=== PATIENT | male | born 1960 | race Caucasian/White ===

== ENCOUNTER 2017-09-08 17:54 | Emergency (ER) | payer MEDICAID ==
[~2017-09-08] VITALS: Ht 180.3 cm; Wt 79.4 kg
[2017-09-08 19:37] LABS: Basophils # (auto) 0 uL; Basophils % (auto) 0.6 % (0.0-2.0); Eosinophils # (auto) 0.1 uL; Hematocrit 34.4 % (41.0-53.0); Hemoglobin 11.1 g/dL (13.5-17.5); Lymphocytes # (auto) 3.4 uL; Mean Corpuscular Hemoglobin 28.4 pg (28.0-32.0); Mean Corpuscular Hgb Conc. 32.4 g/dL (32.0-36.0); Mean Corpuscular Volume 87.6 fL (80.0-100.0); Monocytes # (auto) 0.5 uL; Neutrophils # (auto) 3.4 uL; Neutrophils % (auto) 45.4 % (37.0-80.0); Nucleated Red Blood Cells % 0.3 %; Platelet Count (auto) 168 10^3/uL (140-450); Red Blood Cells 3.93 10^6/uL (4.5-5.90); White Blood Cell 7.4 10^3/uL (4.4-10.8)
[2017-09-08 19:57] LABS: Albumin 2.4 g/dL (3.4-5.0); BUN/Creatinine Ratio 18.9; Bilirubin, Total 0.3 mg/dL (0.2-1.0); Calcium 7.8 mg/dL (8.5-10.1); Potassium 4.2 mmol/L (3.5-5.1); Total Protein 8.6 g/dL (6.4-8.2)
[2017-09-09] MEDS ORDERED: LIDOCAINE 1% HCL (LOCAL ANESTH.) INJ 20ML MDV ONE (02:40)
[2017-09-09] MEDS ORDERED: CLINDAMYCIN HCL 150 MG CAP PO ONE (02:45)
[2017-09-09] MEDS ORDERED: cefTRIAXone SOD 1,000 MG VL IM ONE (02:45)
[2017-09-09 03:04] LABS: Urine Bacteria FEW /hpf (None Seen); Urine Blood 1+ /uL (Negative); Urine Mucus FEW (None Seen); Urine Specific Gravity 1.016 (1.001-1.035); Urine WBC 14 /hpf (0 - 3)
[2017-09-09 03:58] VITALS: BP 182/94
== END 2017-09-09 04:34 | disposition home or self-care (01) ==
LOC: ER 17:54
DX: L03.114 Cellulitis of left upper limb (principal)
CPT/HCPCS: 36415; 80053; 81001; 85025; 87077; 87186; 87205; 96372; 99284; J0696; J2001; J7030

== ENCOUNTER 2017-11-27 08:52 | Emergency (ER) | payer MEDICAID ==
[~2017-11-27] VITALS: Ht 180.3 cm; Wt 113.4 kg
[2017-11-27 09:29] LABS: Basophils # (auto) 0.1 uL; Basophils % (auto) 1.1 % (0.0-2.0); Eosinophils # (auto) 0.1 uL; Eosinophils % (auto) 1.9 % (0.0-7.0); Hematocrit 36.2 % (41.0-53.0); Hemoglobin 11.7 g/dL (13.5-17.5); Lymphocytes # (auto) 1.7 uL; Mean Corpuscular Hemoglobin 28.4 pg (28.0-32.0); Mean Corpuscular Hgb Conc. 32.5 g/dL (32.0-36.0); Mean Corpuscular Volume 87.5 fL (80.0-100.0); Monocytes # (auto) 0.5 uL; Monocytes % (auto) 8.2 % (0.0-12.0); Neutrophils # (auto) 3.6 uL; Neutrophils % (auto) 59.8 % (37.0-80.0); Nucleated Red Blood Cells % 0.1 %; Platelet Count (auto) 205 10^3/uL (140-450); Red Blood Cells 4.14 10^6/uL (4.5-5.90); Red Cell Distribution Width 15.9 % (11.8-14.3)
[2017-11-27 10:03] LABS: Albumin 2.6 g/dL (3.4-5.0); BUN/Creatinine Ratio 19.5; Bilirubin, Total 0.3 mg/dL (0.2-1.0); Calcium 7.7 mg/dL (8.5-10.1); Potassium 4.2 mmol/L (3.5-5.1); Total Protein 8.8 g/dL (6.4-8.2)
[2017-11-27 13:05] LABS: Urine Bacteria MOD /hpf (None Seen); Urine Blood TRACE /uL (Negative); Urine Mucus FEW (None Seen); Urine Specific Gravity 1.022 (1.001-1.035); Urine WBC 70 /hpf (0 - 3)
[2017-11-27 13:15] VITALS: BP 113/90
== END 2017-11-27 13:27 | disposition home or self-care (01) ==
LOC: ER 08:52
DX: L03.116 Cellulitis of left lower limb (principal); L03.115 Cellulitis of right lower limb; N39.0 Urinary tract infection, site not specified; E11.9 Type 2 diabetes mellitus without complications; I10 Essential (primary) hypertension; F17.210 Nicotine dependence, cigarettes, uncomplicated
CPT/HCPCS: 36415; 80053; 81001; 85025; 93970; 94761

== ENCOUNTER 2018-01-02 12:50 | Inpatient (IN) | payer MEDICAID, OTHER ==
[~2018-01-02] VITALS: Ht 180.3 cm; Wt 129.8 kg
[2018-01-02 13:29] LABS: Basophils # (auto) 0 uL; Basophils % (auto) 0.4 % (0.0-2.0); Eosinophils # (auto) 0 uL; Eosinophils % (auto) 0.3 % (0.0-7.0); Hematocrit 36.4 % (41.0-53.0); Hemoglobin 11.8 g/dL (13.5-17.5); Lymphocytes # (auto) 1.2 uL; Lymphocytes % (auto) 11.5 % (10.0-50.0); Mean Corpuscular Hemoglobin 27.9 pg (28.0-32.0); Mean Corpuscular Hgb Conc. 32.5 g/dL (32.0-36.0); Mean Corpuscular Volume 85.8 fL (80.0-100.0); Monocytes # (auto) 0.8 uL; Monocytes % (auto) 7.7 % (0.0-12.0); Neutrophils # (auto) 8.3 uL; Neutrophils % (auto) 80.1 % (37.0-80.0); Platelet Count (auto) 219 10^3/uL (140-450); Red Blood Cells 4.24 10^6/uL (4.5-5.90); Red Cell Distribution Width 15.4 % (11.8-14.3); White Blood Cell 10.3 10^3/uL (4.4-10.8)
[2018-01-02 13:49] LABS: Alanine Aminotransferase 70 U/L (16-61); Albumin 2.2 g/dL (3.4-5.0); Alkaline Phosphatase 173 U/L (45-117); Anion Gap 9 (5-15); Aspartate Aminotransferase 56 U/L (15-37); BUN/Creatinine Ratio 16.4; Bilirubin, Total 0.7 mg/dL (0.2-1.0); Blood Urea Nitrogen 23 mg/dL (7-18); Calcium 7.7 mg/dL (8.5-10.1); Carbon Dioxide 21 mmol/L (21-32); Chloride 98 mmol/L (98-107); GFR African American 67 mL/min; GFR Non-African American 55 mL/min; Glucose 394 mg/dL (74-106); Potassium 4.4 mmol/L (3.5-5.1); Sodium 128 mmol/L (136-145); Total Protein 8.7 g/dL (6.4-8.2)
[2018-01-02] MEDS ORDERED: PIPERACILLIN-TAZOB 3.375GM 100 ML IV ONE (18:30)
[2018-01-02] MEDS ORDERED: VANCOMYCIN PER PHARMACY 0 MG IV SCH (18:30)
[2018-01-02] MEDS ORDERED: DEXTROSE (50%) 50ML SYRG IV PRN (18:45)
[2018-01-02] MEDS ORDERED: DOCUSATE SOD 100 MG CAP PO PRN (19:00)
[2018-01-02] MEDS ORDERED: MORPHINE SULFATE 4 MG/ML SYR/VIAL IV PRN (19:00)
[2018-01-02] MEDS ORDERED: NITROGLYCERIN 0.4 MG SL TAB SL PRN (19:00)
[2018-01-02] MEDS ORDERED: ACETAMINOPHEN 325 MG TAB PO PRN (19:00)
[2018-01-02] MEDS: SODIUM CHLORIDE 0.9% 1,000 ML IV SCH (19:16)
[2018-01-02] MEDS: ACCU-CHEK COMFORT CURVE STRIP VI SCH (23:30)
[2018-01-03] MEDS: PIPERACILLIN-TAZOB 3.375GM 100 ML IV SCH ×5 (03:38→23:34)
[2018-01-03] MEDS: MORPHINE SULFATE 4 MG/ML SYR/VIAL IV PRN ×4 (03:53→20:04)
[2018-01-03] MEDS: ONDANSETRON HCL 4 MG/2 ML VIAL IV PRN ×3 (03:54→13:38)
[2018-01-03] MEDS: Boost Glucose Control 8 Ounces PO SCH ×5 (06:00→21:57)
[2018-01-03] MEDS: ACCU-CHEK COMFORT CURVE STRIP VI SCH ×4 (07:42→22:02)
[2018-01-03] MEDS: VANCOMYCIN 1GM/250ML 250 ML IV SCH ×3 (09:20→20:04)
[2018-01-03] MEDS: ZINC SULFATE 220 MG CAP PO SCH (10:50)
[2018-01-03] MEDS: FAMOTIDINE 20 MG TAB PO SCH ×3 (10:51→21:56)
[2018-01-03] MEDS: ASCORBIC ACID 500 MG TAB PO SCH ×3 (10:51→21:56)
[2018-01-03] MEDS: MULTIPLE VITAMIN TAB PO SCH (10:51)
[2018-01-03] MEDS: InsuLIN REG 1unit/0.01ml Soln (100units/ml) SC SCH ×5 (12:38→22:09)
[2018-01-03] MEDS: SODIUM CHLORIDE 0.9% 1,000 ML IV SCH (13:55)
[2018-01-03 14:07] LABS: Basophils # (auto) 0.1 uL; Basophils % (auto) 0.6 % (0.0-2.0); Eosinophils # (auto) 0.1 uL; Eosinophils % (auto) 0.6 % (0.0-7.0); Hematocrit 37.8 % (41.0-53.0); Hemoglobin 12.1 g/dL (13.5-17.5); Lymphocytes # (auto) 1.4 uL; Lymphocytes % (auto) 12.7 % (10.0-50.0); Mean Corpuscular Hemoglobin 27.4 pg (28.0-32.0); Mean Corpuscular Hgb Conc. 31.9 g/dL (32.0-36.0); Mean Corpuscular Volume 85.9 fL (80.0-100.0); Monocytes # (auto) 0.6 uL; Monocytes % (auto) 5.6 % (0.0-12.0); Neutrophils # (auto) 8.5 uL; Neutrophils % (auto) 80.5 % (37.0-80.0); Nucleated Red Blood Cells % 0.1 %; Platelet Count (auto) 188 10^3/uL (140-450); Red Cell Distribution Width 15.2 % (11.8-14.3); White Blood Cell 10.6 10^3/uL (4.4-10.8)
[2018-01-03 14:20] LABS: Alanine Aminotransferase 51 U/L (16-61); Alkaline Phosphatase 150 U/L (45-117); Anion Gap 9 (5-15); Aspartate Aminotransferase 40 U/L (15-37); BUN/Creatinine Ratio 14.2; Bilirubin, Total 0.6 mg/dL (0.2-1.0); Blood Urea Nitrogen 17 mg/dL (7-18); Carbon Dioxide 22 mmol/L (21-32); Chloride 102 mmol/L (98-107); GFR African American 80 mL/min; GFR Non-African American 66 mL/min; Glucose 270 mg/dL (74-106); Sodium 133 mmol/L (136-145); Total Protein 8.6 g/dL (6.4-8.2)
[2018-01-03 16:30] VITALS: BP 167/96
[2018-01-03 17:00] VITALS: BP 167/96
[2018-01-03] MEDS: HYDROcodone-ACET 5/325MG TAB PO PRN ×2 (17:51→22:09)
[2018-01-03 20:00] VITALS: BP 124/102
[2018-01-03 22:04] VITALS: BP 124/102
[2018-01-04 01:24] LABS: Urine Bacteria NONE SEEN /hpf (None Seen); Urine Blood 2+ /uL (Negative); Urine Specific Gravity 1.013 (1.001-1.035); Urine WBC 5 /hpf (0 - 3)
[2018-01-04 01:33] LABS: Alcohol, Urine < 3.0 mg/dL (0-5); Amphetamine Screen, Urine NEGATIVE (NEGATIVE); Barbiturate Scree,Urine NEGATIVE (NEGATIVE); Benzodiazephine Screen, Urine NEGATIVE (NEGATIVE); Cannabinoid Screen, Urine NEGATIVE (NEGATIVE); Cocaine Screen, Urine NEGATIVE (NEGATIVE); Opiate Scree,Urine POSITIVE (NEGATIVE); Phencyclidine Screen, Urine NEGATIVE (NEGATIVE)
[2018-01-04] MEDS: SODIUM CHLORIDE 0.9% 1,000 ML IV SCH ×2 (03:41→20:17)
[2018-01-04] MEDS: HYDROcodone-ACET 5/325MG TAB PO PRN (04:56)
[2018-01-04] MEDS: Boost Glucose Control 8 Ounces PO SCH ×4 (06:00→21:18)
[2018-01-04 06:20] LABS: Basophils # (auto) 0 uL; Basophils % (auto) 0.4 % (0.0-2.0); Eosinophils # (auto) 0.1 uL; Eosinophils % (auto) 0.6 % (0.0-7.0); Hematocrit 35.6 % (41.0-53.0); Hemoglobin 11.7 g/dL (13.5-17.5); Lymphocytes # (auto) 1.5 uL; Lymphocytes % (auto) 15.7 % (10.0-50.0); Mean Corpuscular Hemoglobin 28.2 pg (28.0-32.0); Mean Corpuscular Hgb Conc. 32.9 g/dL (32.0-36.0); Mean Corpuscular Volume 85.8 fL (80.0-100.0); Monocytes # (auto) 0.7 uL; Monocytes % (auto) 7.2 % (0.0-12.0); Neutrophils # (auto) 7.1 uL; Neutrophils % (auto) 76.1 % (37.0-80.0); Nucleated Red Blood Cells % 0.1 %; Platelet Count (auto) 193 10^3/uL (140-450); Red Blood Cells 4.15 10^6/uL (4.5-5.90); Red Cell Distribution Width 15.3 % (11.8-14.3); White Blood Cell 9.3 10^3/uL (4.4-10.8)
[2018-01-04] MEDS: PIPERACILLIN-TAZOB 3.375GM 100 ML IV SCH ×4 (06:36→23:49)
[2018-01-04 06:37] LABS: Albumin 1.9 g/dL (3.4-5.0); BUN/Creatinine Ratio 17.6; Calcium 8.1 mg/dL (8.5-10.1); Potassium 3.9 mmol/L (3.5-5.1)
[2018-01-04 06:40] LABS: Bilirubin, Total 0.6 mg/dL (0.2-1.0); Total Protein 8.3 g/dL (6.4-8.2)
[2018-01-04] MEDS: ACCU-CHEK COMFORT CURVE STRIP VI SCH ×4 (06:49→21:19)
[2018-01-04] MEDS: InsuLIN REG 1unit/0.01ml Soln (100units/ml) SC SCH ×4 (06:53→21:22)
[2018-01-04] MEDS: VANCOMYCIN 1,500 MG in D5W 5% 250 ML IV SCH ×2 (08:30→21:19)
[2018-01-04] MEDS: MORPHINE SULFATE 4 MG/ML SYR/VIAL IV PRN ×3 (08:42→20:17)
[2018-01-04 09:00] VITALS: BP 153/99
[2018-01-04] MEDS: FAMOTIDINE 20 MG TAB PO SCH ×2 (11:23→21:18)
[2018-01-04] MEDS: ASCORBIC ACID 500 MG TAB PO SCH ×2 (11:23→21:18)
[2018-01-04] MEDS: MULTIPLE VITAMIN TAB PO SCH (11:23)
[2018-01-04] MEDS: ZINC SULFATE 220 MG CAP PO SCH (11:23)
[2018-01-04 17:00] VITALS: BP 187/78
[2018-01-04 22:25] VITALS: BP 163/88
[2018-01-05] MEDS: MORPHINE SULFATE 4 MG/ML SYR/VIAL IV PRN ×2 (00:33→04:39)
[2018-01-05] MEDS: Boost Glucose Control 8 Ounces PO SCH ×4 (05:35→21:32)
[2018-01-05] MEDS: PIPERACILLIN-TAZOB 3.375GM 100 ML IV SCH ×4 (05:35→23:56)
[2018-01-05 05:43] VITALS: BP 151/84
[2018-01-05] MEDS: ACCU-CHEK COMFORT CURVE STRIP VI SCH ×4 (06:23→21:32)
[2018-01-05] MEDS: InsuLIN REG 1unit/0.01ml Soln (100units/ml) SC SCH ×4 (06:23→21:33)
[2018-01-05 06:38] LABS: Basophils # (auto) 0 uL; Basophils % (auto) 0.4 % (0.0-2.0); Eosinophils # (auto) 0.1 uL; Hematocrit 37.2 % (41.0-53.0); Hemoglobin 12.2 g/dL (13.5-17.5); Lymphocytes # (auto) 1.8 uL; Lymphocytes % (auto) 18.5 % (10.0-50.0); Mean Corpuscular Hemoglobin 28.2 pg (28.0-32.0); Mean Corpuscular Hgb Conc. 32.9 g/dL (32.0-36.0); Mean Corpuscular Volume 85.6 fL (80.0-100.0); Monocytes # (auto) 0.8 uL; Monocytes % (auto) 8.1 % (0.0-12.0); Neutrophils # (auto) 7.2 uL; Nucleated Red Blood Cells % 0.2 %; Platelet Count (auto) 220 10^3/uL (140-450); Red Blood Cells 4.35 10^6/uL (4.5-5.90); Red Cell Distribution Width 15.2 % (11.8-14.3)
[2018-01-05 06:59] LABS: BUN/Creatinine Ratio 19.3; Calcium 8.1 mg/dL (8.5-10.1)
[2018-01-05 07:18] LABS: Bilirubin, Total 0.5 mg/dL (0.2-1.0); Total Protein 8.7 g/dL (6.4-8.2)
[2018-01-05 09:00] VITALS: BP 144/91
[2018-01-05] MEDS: ZINC SULFATE 220 MG CAP PO SCH (09:16)
[2018-01-05] MEDS: VANCOMYCIN 1,500 MG in D5W 5% 250 ML IV SCH ×2 (09:16→22:00)
[2018-01-05] MEDS: ASCORBIC ACID 500 MG TAB PO SCH ×2 (09:17→21:32)
[2018-01-05] MEDS: MULTIPLE VITAMIN TAB PO SCH (09:17)
[2018-01-05] MEDS: FAMOTIDINE 20 MG TAB PO SCH ×2 (09:17→21:32)
[2018-01-05] MEDS: SODIUM CHLORIDE 0.9% 1,000 ML IV SCH (13:26)
[2018-01-05] MEDS ORDERED: MORPHINE SULFATE 8mg/ml INJ SDV IV PRN (16:45)
[2018-01-05] MEDS: MORPHINE SULFATE 8mg/ml INJ SDV IV PRN ×2 (16:52→21:14)
[2018-01-05 17:00] VITALS: BP 124/81
[2018-01-05 20:00] VITALS: BP 141/79
[2018-01-05 21:52] VITALS: BP 141/79
[2018-01-06] MEDS: MORPHINE SULFATE 8mg/ml INJ SDV IV PRN ×4 (02:08→20:20)
[2018-01-06 05:00] VITALS: BP 154/77
[2018-01-06] MEDS: Boost Glucose Control 8 Ounces PO SCH ×3 (06:17→21:54)
[2018-01-06] MEDS: SODIUM CHLORIDE 0.9% 1,000 ML IV SCH (06:17)
[2018-01-06] MEDS: PIPERACILLIN-TAZOB 3.375GM 100 ML IV SCH ×4 (06:17→17:42)
[2018-01-06] MEDS: ACCU-CHEK COMFORT CURVE STRIP VI SCH ×4 (07:02→21:55)
[2018-01-06] MEDS: InsuLIN REG 1unit/0.01ml Soln (100units/ml) SC SCH ×4 (07:02→22:04)
[2018-01-06 08:29] LABS: Albumin 1.9 g/dL (3.4-5.0); Potassium 3.8 mmol/L (3.5-5.1)
[2018-01-06 08:31] LABS: BUN/Creatinine Ratio 18.5
[2018-01-06 08:34] LABS: Bilirubin, Total 0.5 mg/dL (0.2-1.0); Total Protein 8.7 g/dL (6.4-8.2)
[2018-01-06 09:00] VITALS: BP 159/93
[2018-01-06] MEDS: ZINC SULFATE 220 MG CAP PO SCH (09:18)
[2018-01-06] MEDS: VANCOMYCIN 1,500 MG in D5W 5% 250 ML IV SCH (09:18)
[2018-01-06] MEDS: MULTIPLE VITAMIN TAB PO SCH (09:18)
[2018-01-06] MEDS: FAMOTIDINE 20 MG TAB PO SCH ×3 (09:18→22:00)
[2018-01-06] MEDS: ASCORBIC ACID 500 MG TAB PO SCH ×3 (09:19→22:00)
[2018-01-06 17:08] VITALS: BP 146/95
[2018-01-06] MEDS: PRO-STAT 64 30ML PO SCH (17:43)
[2018-01-06 22:00] VITALS: BP 162/80
[2018-01-07] MEDS: SODIUM CHLORIDE 0.9% 1,000 ML IV SCH ×2 (03:52→15:26)
[2018-01-07] MEDS: VANCOMYCIN 1GM/250ML 250 ML IV SCH ×2 (03:52→16:46)
[2018-01-07] MEDS: MORPHINE SULFATE 8mg/ml INJ SDV IV PRN ×4 (04:34→22:06)
[2018-01-07 05:00] VITALS: BP 141/71
[2018-01-07] MEDS: PIPERACILLIN-TAZOB 3.375GM 100 ML IV SCH ×4 (06:00→18:06)
[2018-01-07] MEDS: InsuLIN REG 1unit/0.01ml Soln (100units/ml) SC SCH ×4 (06:22→22:19)
[2018-01-07] MEDS: ACCU-CHEK COMFORT CURVE STRIP VI SCH ×4 (06:22→22:02)
[2018-01-07 07:48] LABS: Basophils # (auto) 0 uL; Basophils % (auto) 0.4 % (0.0-2.0); Eosinophils # (auto) 0.1 uL; Eosinophils % (auto) 1.7 % (0.0-7.0); Hematocrit 39.5 % (41.0-53.0); Hemoglobin 12.9 g/dL (13.5-17.5); Lymphocytes % (auto) 25.9 % (10.0-50.0); Mean Corpuscular Hemoglobin 27.9 pg (28.0-32.0); Mean Corpuscular Hgb Conc. 32.6 g/dL (32.0-36.0); Mean Corpuscular Volume 85.5 fL (80.0-100.0); Monocytes # (auto) 0.7 uL; Monocytes % (auto) 8.8 % (0.0-12.0); Neutrophils # (auto) 4.9 uL; Neutrophils % (auto) 63.2 % (37.0-80.0); Platelet Count (auto) 244 10^3/uL (140-450); Red Blood Cells 4.62 10^6/uL (4.5-5.90); Red Cell Distribution Width 15.2 % (11.8-14.3); White Blood Cell 7.8 10^3/uL (4.4-10.8)
[2018-01-07 07:50] LABS: BUN/Creatinine Ratio 21.6; Calcium 8.3 mg/dL (8.5-10.1); Potassium 4.3 mmol/L (3.5-5.1)
[2018-01-07 07:57] VITALS: BP 152/98
[2018-01-07 09:11] VITALS: BP 152/98
[2018-01-07] MEDS: MULTIPLE VITAMIN TAB PO SCH (09:50)
[2018-01-07] MEDS: ASCORBIC ACID 500 MG TAB PO SCH ×2 (09:50→22:01)
[2018-01-07] MEDS: Boost Glucose Control 8 Ounces PO SCH ×2 (09:50→22:00)
[2018-01-07] MEDS: FAMOTIDINE 20 MG TAB PO SCH ×2 (09:50→22:01)
[2018-01-07] MEDS: ZINC SULFATE 220 MG CAP PO SCH (09:50)
[2018-01-07] MEDS: PRO-STAT 64 30ML PO SCH ×2 (09:50→17:24)
[2018-01-07 12:18] VITALS: BP 169/92
[2018-01-07 16:38] VITALS: BP 157/97
[2018-01-07 22:00] VITALS: BP 155/84
[2018-01-08] MEDS: PIPERACILLIN-TAZOB 3.375GM 100 ML IV SCH ×2 (00:05→06:45)
[2018-01-08] MEDS: MORPHINE SULFATE 8mg/ml INJ SDV IV PRN (00:56)
[2018-01-08 03:26] LABS: Basophils # (auto) 0.1 uL; Basophils % (auto) 0.7 % (0.0-2.0); Eosinophils # (auto) 0.2 uL; Hematocrit 38.8 % (41.0-53.0); Hemoglobin 12.7 g/dL (13.5-17.5); Lymphocytes # (auto) 2.3 uL; Lymphocytes % (auto) 28.6 % (10.0-50.0); Mean Corpuscular Hemoglobin 27.8 pg (28.0-32.0); Mean Corpuscular Hgb Conc. 32.6 g/dL (32.0-36.0); Mean Corpuscular Volume 85.2 fL (80.0-100.0); Monocytes # (auto) 0.7 uL; Monocytes % (auto) 8.3 % (0.0-12.0); Neutrophils # (auto) 4.8 uL; Neutrophils % (auto) 60.4 % (37.0-80.0); Platelet Count (auto) 252 10^3/uL (140-450); Red Blood Cells 4.56 10^6/uL (4.5-5.90); Red Cell Distribution Width 15.2 % (11.8-14.3)
[2018-01-08] MEDS: VANCOMYCIN 1GM/250ML 250 ML IV SCH (04:02)
[2018-01-08 04:13] LABS: Albumin 2.1 g/dL (3.4-5.0); BUN/Creatinine Ratio 20.9; Calcium 8.2 mg/dL (8.5-10.1); Potassium 4.4 mmol/L (3.5-5.1)
[2018-01-08 04:20] LABS: Bilirubin, Total 0.4 mg/dL (0.2-1.0); Total Protein 8.9 g/dL (6.4-8.2)
[2018-01-08 05:00] VITALS: BP 115/61
[2018-01-08] MEDS: ACCU-CHEK COMFORT CURVE STRIP VI SCH ×2 (07:05→11:30)
[2018-01-08] MEDS: InsuLIN REG 1unit/0.01ml Soln (100units/ml) SC SCH ×2 (07:06→11:30)
[2018-01-08] MEDS: SODIUM CHLORIDE 0.9% 1,000 ML IV SCH (08:06)
[2018-01-08 09:00] VITALS: BP 152/90
[2018-01-08 10:50] VITALS: BP 152/90
[2018-01-08] MEDS: ASCORBIC ACID 500 MG TAB PO SCH (11:07)
[2018-01-08] MEDS: ZINC SULFATE 220 MG CAP PO SCH (11:08)
[2018-01-08] MEDS: Boost Glucose Control 8 Ounces PO SCH (11:08)
[2018-01-08] MEDS: MULTIPLE VITAMIN TAB PO SCH (11:08)
[2018-01-08] MEDS: HYDROcodone-ACET 5/325MG TAB PO PRN (11:08)
[2018-01-08] MEDS: FAMOTIDINE 20 MG TAB PO SCH (11:09)
[2018-01-08] MEDS: PRO-STAT 64 30ML PO SCH (11:09)
[2018-01-08 13:00] VITALS: BP 157/90
[2018-01-08] MEDS ORDERED: VANCOMYCIN 1GM/250ML 250 ML IV SCH (16:00)
== END 2018-01-08 12:00 | disposition home or self-care (01) | DRG 383 ==
LOC: ER 12:53 → OVERFLOW 12:54 → TELE-WESTW 01-03 15:33 → WEST WING 01-06 05:11
PROVIDERS: ADMIT Internal Medicine; ATTEND Internal Medicine
DX: L03.116 Cellulitis of left lower limb (principal); G92 Toxic encephalopathy; I50.43 Acute on chronic combined systolic (congestive) and diastolic (congestive) heart failure; E43 Unspecified severe protein-calorie malnutrition; I13.0 Hypertensive heart and chronic kidney disease with heart failure and stage 1 through stage 4 chronic kidney disease, or unspecified chronic kidney disease; E11.21 Type 2 diabetes mellitus with diabetic nephropathy; E87.1 Hypo-osmolality and hyponatremia; E11.65 Type 2 diabetes mellitus with hyperglycemia; E88.09 Other disorders of plasma-protein metabolism, not elsewhere classified; E11.22 Type 2 diabetes mellitus with diabetic chronic kidney disease; E83.51 Hypocalcemia; N18.3 Chronic kidney disease, stage 3 (moderate); D63.8 Anemia in other chronic diseases classified elsewhere; F17.210 Nicotine dependence, cigarettes, uncomplicated; F19.10 Other psychoactive substance abuse, uncomplicated; A49.02 Methicillin resistant Staphylococcus aureus infection, unspecified site; Z68.39 Body mass index [BMI] 39.0-39.9, adult; Z59.0 Homelessness; Z91.19 Patient's noncompliance with other medical treatment and regimen
CPT/HCPCS: 36415; 71045; 80048; 80053; 80202; 80307; 81001; 82962; 83036; 83605; 83880; 84443; 84484; 85025; 87040; 87077; 87081; 87086; 87186; 87205; 93005; 93306; 93970; 96374; 99291; G0378; J1815; J2270; J2405; J2543; J7060